=== PATIENT | female | born 1955 | race Caucasian/White ===

== ENCOUNTER 2017-09-22 08:34 | Emergency (ER) | payer MEDICAID ==
[2017-09-22 09:15] VITALS: BP 133/95
--- NOTE | 2017-09-22 09:56 | EDM.PDOC ---
ED HPI GENERAL MEDICAL PROBLEM - General Chief Complaint: Lower Extremity Injury/Pain Stated Complaint: RIGHT KNEE PAIN/LEFT HAND INJURY Time Seen by Provider: 09/22/17 09:14 Source of Information: Reports: Patient History Limitations: Reports: No Limitations - History of Present Illness INITIAL COMMENTS - FREE TEXT/NARRATIVE: The patient is a 61-year-old female with a chief complaint of right knee and left hand pain. She fell on the ice yesterday. She landed on her right knee. She came in for evaluation here today because the pain is significant. She is able to ambulate but it hurts to do so. Pain is located in the front of her right knee. No hip pain. No foot or ankle pain. She hasn't taken anything this morning for pain. She also has bruising on her left hand but she states is not very painful. No additional complaint. Right Knee Pain Score (Numeric/FACES): 7 - Related Data Allergies Allergy/AdvReac Type Severity Reaction Status Date / Time haloperidol [From Haldol] Allergy Muscle Verified 09/22/17 09:15 Aches haloperidol lactate Allergy Muscle Verified 09/22/17 09:15 [From Haldol] Aches Home Meds: Home Meds Levothyroxine 125 mcg PO DAILY 05/09/15 [History] [place] Carbonate 300 mg PO BID 05/09/15 [History] Ibuprofen 400 mg PO Q6H PRN #15 tablet 05/16/16 [Rx] LORazepam [Ativan] 1 mg PO DAILY PRN 09/22/17 [History] Omeprazole Magnesium [Prilosec Otc] 20 mg PO DAILY 09/22/17 [History] Stelazine 5 mg PO ACBREAKFAST 09/22/17 [History] Stelazine 15 mg PO BEDTIME 09/22/17 [History] Past Medical History Gastrointestinal History: Reports: GERD Musculoskeletal History: Reports: Arthritis Psychiatric History: Reports: Anxiety, Bipolar, Other (See Below) Other Psychiatric History: Paranoid schizoaffective disorder Endocrine/Metabolic History: Reports: Hypothyroidism - Past Surgical History Female Surgical History: Reports: Tubal Ligation Social & Family History - Family History Family Medical History: Noncontributory - Tobacco Use Smoking Status *Q: Current Every Day Smoker Years of Tobacco use: 31 Packs/Tins Daily: 0.7 - Recreational Drug Use Recreational Drug Use: No Review of Systems - Review of Systems Review Of Systems: See Below Constitutional: Reports: No Symptoms Respiratory: Reports: No Symptoms Cardiovascular: Reports: No Symptoms Musculoskeletal: Reports: Arm Pain, Leg Pain Skin: Reports: Bruising ED EXAM, GENERAL - Physical Exam Exam: See Below Exam Limited By: No Limitations General Appearance: Alert, WD/WN, No Apparent Distress Eye Exam: Bilateral Eye: Normal Inspection Ears: Normal External Exam Nose: Normal Inspection Throat/Mouth: Normal Inspection, Normal Voice, No Airway Compromise Head: Atraumatic, Normocephalic Neck: Normal Inspection Respiratory/Chest: No Respiratory Distress Cardiovascular: Normal Peripheral Pulses Extremities: Other (Lower extremity: No hip or femur tenderness or deformity. Mild diffuse erythema and tenderness of the anterior right knee. No knee effusion. Mild tenderness along the medial joint line. No tibia or fibula tenderness or deformity. No foot or ankle tenderness or deformity. Distal motor/ sensation/perfusion intact. Left hand: No wrist tenderness. Moderate ecchymosis at the base of the pinky and ring fingers. No bony deformity. Mild tenderness throughout. Minimal swelling. Distal motor/perfusion intact.) Psychiatric: Normal Affect, Normal Mood Skin Exam: Warm, Normal Color Course - Vital Signs Last Recorded V/S: Last Vital Signs Temp 36.8 C 09/22/17 09:10 Pulse 67 09/22/17 09:10 Resp 18 09/22/17 09:10 BP 133/95 H 09/22/17 09:10 Pulse Ox 99 09/22/17 09:10 - Orders/Labs/Meds Orders: Active Orders 24 hr Category Date Time Status Hand Comp Min 3V Lt [CR] Stat Exams 09/22/17 09:55 Taken Knee Min 4V Rt [CR] Stat Exams 09/22/17 09:55 Taken - Re-Assessments/Exams Free Text/Narrative Re-Assessment/Exam: 09/22/17 13:00 X-ray of the right knee is negative for fracture, normal study. X-ray of the left hand is also negative for fracture, normal study. Reassured patient and discussed need for follow-up if not improving next week. Departure - Departure Time of Disposition: 10:30 Disposition: Home, Self-Care 01 Clinical Impression: Knee contusion Qualifiers: Encounter type: initial encounter Laterality: right Qualified Code(s): S80.01XA - Contusion of right knee, initial encounter Hand contusion Qualifiers: Encounter type: initial encounter Laterality: left Qualified Code(s): S60.222A - Contusion of left hand, initial encounter - Discharge Information Instructions: Contusion, [id number] Referrals: Nora Mark MD [Primary Care Provider] - Forms: ED Department Discharge Additional Instructions: 1. Ice knee today and tomorrow 2. Take ibuprofen and/or acetaminophen as needed for pain 3. Keep knee elevated as much as possible over the next couple of days to help with swelling 4. Follow up with your primary doctor next week if not improving - My Orders Last 24 Hours: My Active Orders 09/22/17 09:55 Hand Comp Min 3V Lt [CR] Stat Knee Min 4V Rt [CR] Stat - Assessment/Plan Last 24 Hours: My Active Orders 09/22/17 09:55 Hand Comp Min 3V Lt [CR] Stat Knee Min 4V Rt [CR] Stat
--- NOTE | 2017-09-22 15:43 | CR ---
Right knee: Four views of the right knee were obtained. Comparison: No prior knee exam. Medial and lateral joint spaces are maintained. Small joint effusion is seen. No acute fracture or other bony abnormality is appreciated. Impression: 1. Small joint effusion. 2. No additional abnormality is identified on right knee exam. Diagnostic code #3
--- NOTE | 2017-09-22 15:43 | CR ---
Left hand: Four views of the left hand were obtained. Comparison: No prior hand exam. Mild joint space narrowing is noted within the DIP and PIP joints. No fracture, dislocation or other bony abnormality is seen. Impression: 1. Slight joint space narrowing. Left hand exam is otherwise unremarkable. Diagnostic code #2
== END 2017-09-22 10:45 | disposition home or self-care (01) ==
LOC: JD.ED 08:34
DX: S80.01XA Contusion of right knee, initial encounter (principal); S60.222A Contusion of left hand, initial encounter; F17.210 Nicotine dependence, cigarettes, uncomplicated; Z88.5 Allergy status to narcotic agent; Z79.899 Other long term (current) drug therapy; W00.1XXA Fall from stairs and steps due to ice and snow, initial encounter
CPT/HCPCS: 73130-26-LT; 73130-LT; 73564-26-RT; 73564-RT; 99282; 99283

== ENCOUNTER 2018-06-20 09:52 | Emergency (ER) | payer MEDICAID ==
[2018-06-20 10:12] VITALS: BP 137/95
[2018-06-20] MEDS ORDERED: LORazepam 2 MG/ML SDV IM ONE (11:03)
[2018-06-20] MEDS ORDERED: diphenhydrAMINE 50 MG/ML SDV IM ONE (11:05)
[2018-06-20] MEDS ORDERED: Haloperidol Lactate 5 MG/ML SDV IM ONE (11:12)
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
[2018-06-20] MEDS ORDERED: Cephalexin 500 MG Cap PO ONE (12:43)
[2018-06-20 12:56] LABS: ACETAMINOPHEN 0 ug/mL (10-30)
== END 2018-06-20 14:07 ==
LOC: JD.ED 09:52
DX: F29 Unspecified psychosis not due to a substance or known physiological condition (principal); Z88.8 Allergy status to other drugs, medicaments and biological substances; Z79.899 Other long term (current) drug therapy; F17.210 Nicotine dependence, cigarettes, uncomplicated
CPT/HCPCS: 36415; 80053; 80306; 81001; 84439; 84443; 85025; 87086; 87088; 87186; 96372; 99285; A9270; G0480; J1200; J1630; J2060; 99284

== ENCOUNTER 2019-12-26 14:16 | Emergency (ER) | payer MEDICAID ==
[2019-12-26 14:23] VITALS: BP 127/92; PULSE 111
--- NOTE | 2019-12-26 14:51 | EDM.PDOCBH ---
ED HPI GENERAL MEDICAL PROBLEM - General Chief Complaint: Behavioral/Psych Stated Complaint: MEDICAL CLEARANCE Time Seen by Provider: 12/26/19 14:23 Source of Information: Reports: Patient History Limitations: Reports: No Limitations ( ) - History of Present Illness INITIAL COMMENTS - FREE TEXT/NARRATIVE: Patient is a 64-year-old female brought in by the Electrical Test Engineer department for medical clearance. She was in court today and a court order was issued for her to be admitted to the [facility] due to her noncompliance with outpatient treatment. I did speak with the remote ruby on rails developer at [facility] who advised that she is already been accepted by the [facility], therefore a doc to doc report is not required. They did request that if anything concerning shows on her work-up to fax a copy to them. She advised me that she has a history of schizoaffective disorder, bipolar, anxiety, EtOH abuse in remission. Patient denies any current drug or alcohol use. She also denies any suicidal ideation. She was cooperative with the history denies any complaints. - Related Data Allergies Allergy/AdvReac Type Severity Reaction Status Date / Time haloperidol [From Haldol] Allergy Hives Verified 12/26/19 14:23 Home Meds: Home Meds Levothyroxine 125 mcg PO DAILY 05/09/15 [History] [place] Carbonate 300 mg PO BID 05/09/15 [History] Ibuprofen 400 mg PO Q6H PRN #15 tablet 05/16/16 [Rx] LORazepam [Ativan] 1 mg PO DAILY PRN 09/22/17 [History] Omeprazole Magnesium [Prilosec Otc] 20 mg PO DAILY 09/22/17 [History] Stelazine 5 mg PO ACBREAKFAST 09/22/17 [History] Stelazine 15 mg PO BEDTIME 09/22/17 [History] Past Medical History Gastrointestinal History: Reports: GERD 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: Musculoskeletal History: Reports: Arthritis Psychiatric History: Reports: Anxiety, Bipolar, Other (See Below) Other Psychiatric History: Paranoid schizoaffective disorder Endocrine/Metabolic History: Reports: Hypothyroidism - Past Surgical History Female Surgical History: Reports: Tubal Ligation Social & Family History - Family History Family Medical History: Noncontributory - Tobacco Use Smoking Status *Q: Current Every Day Smoker Years of Tobacco use: 20 Packs/Tins Daily: 0.5 - Caffeine Use Caffeine Use: Reports: None - Recreational Drug Use Recreational Drug Use: No ED ROS GENERAL - Review of Systems Review Of Systems: Comprehensive ROS is negative, except as noted in HPI. ED EXAM, BEHAVIORAL HEALTH - Physical Exam Exam: See Below Exam Limited By: No Limitations General Appearance: Alert, WD/WN, No Apparent Distress Respiratory/Chest: No Respiratory Distress, Lungs Clear, Normal Breath Sounds, No Accessory Muscle Use, Chest Non-Tender Cardiovascular: Normal Peripheral Pulses, Regular Rate, Rhythm, No Edema, No Gallop, No JVD, No Murmur, No Rub Neurological: Alert, Normal Mood/Affect, CN II-XII Intact, Normal Cognition, Normal Gait, Normal Reflexes, No Motor/Sensory Deficits, Oriented x 3 Psychiatric: Alert, Normal Affect, Normal Cognition, Normal Mood, Oriented Skin Exam: Warm, Dry, Intact, Normal color, No rash EKG INTERPRETATION EKG Date: 12/26/19 Time: 16:40 Rhythm: NSR Rate (Beats/Min): 99 [place]: Normal P-Wave: Present QRS: Normal ST-T: Normal QT: Normal Comparison: NA - No Prior EKG COURSE, BEHAVIORAL HEALTH COMP - Course Vital Signs: Last Vital Signs Temp 97.6 F 12/26/19 14:21 Pulse 111 H 12/26/19 14:21 Resp 18 12/26/19 14:21 BP 127/92 H 12/26/19 14:21 Pulse Ox 93 L 12/26/19 14:21 Orders, Labs, Meds: Active Orders 24 hr Category Date Time Status EKG Documentation Completion [RC] STAT Care 12/26/19 14:30 Active ACETAMINOPHEN [CHEM] Stat Lab 12/26/19 15:07 Received CBC WITH MANUAL DIFF [HEME] Stat Lab 12/26/19 15:07 Results COMPREHENSIVE METABOLIC PN,CMP [CHEM] Stat Lab 12/26/19 15:07 Received ETHANOL BLOOD MEDICAL [CHEM] Stat Lab 12/26/19 15:07 Received SALICYLATE [CHEM] Stat Lab 12/26/19 15:07 Received TSH [CHEM] Stat Lab 12/26/19 15:07 Received Laboratory Tests 12/26/19 12/26/19 12/26/19 Range/Units 14:34 14:34 15:07 WBC 8.24 (3.98-10.04) K/mm3 RBC 4.97 (3.98-5.22) M/mm3 Hgb 14.3 (11.2-15.7) gm/dl Hct 45.3 H (34.1-44.9) % MCV 91.1 (79.4-94.8) fl MCH 28.8 (25.6-32.2) pg MCHC 31.6 L (32.2-35.5) g/dl RDW Std Deviation 47.1 H (36.4-46.3) fL Plt Count 321 (182-369) K/mm3 MPV 9.3 L (9.4-12.3) fl Urine HCG, Qual Negative (NEGATIVE) Urine Opiates Screen Negative (DSZZPW=727) Ur Buprenorphine Scrn Negative (CUTOFF=10) Ur Oxycodone Screen Negative (JAB9MF=688) Urine Methadone Screen Negative (ITKDLS=624) Ur Propoxyphene Screen Negative (DLPLDQ=661) Ur Barbiturates Screen Negative (UNQNOD=481) Ur Tricyclics Screen Negative (SPMQDG=035) Ur Phencyclidine Scrn Negative (CUTOFF=25) Ur Amphetamine Screen Negative (MILFBH=709) U Methamphetamines Scrn Negative (RUDHID=122) U Benzodiazepines Scrn Negative (ORGRNG=213) U Cocaine Metab Screen Negative (PAHSBO=565) U Marijuana (THC) Screen Negative (CUTOFF=50) Departure - Departure Time of Disposition: 15:39 Disposition: Home, Self-Care 01 Condition: Good Clinical Impression: Schizo-affective schizophrenia, chronic condition - Discharge Information *PRESCRIPTION DRUG MONITORING PROGRAM REVIEWED*: No *COPY OF PRESCRIPTION DRUG MONITORING REPORT IN PATIENT BETHANY: No Forms: ED Department Discharge Additional Instructions: Maegan was seen in the emergency department today for medical clearance. A complete psychiatric work-up was completed and she was found to be medically stable at this time. [facility] verbalized that she is already accepted into the [facility] in [place]. She may be transported there when resources are available. Sepsis Event Note - Evaluation Sepsis Screening Result: No Definite Risk - Focused Exam Vital Signs: Vital Signs Temp Pulse Resp BP Pulse Ox 12/26/19 14:21 97.6 F 111 H 18 127/92 H 93 L Date Exam was Performed: 12/26/19 Time Exam was Performed: 15:39 - My Orders Last 24 Hours: My Active Orders 12/26/19 14:30 EKG Documentation Completion [RC] STAT 12/26/19 15:07 ACETAMINOPHEN [CHEM] Stat CBC WITH MANUAL DIFF [HEME] Stat COMPREHENSIVE METABOLIC PN,CMP [CHEM] Stat ETHANOL BLOOD MEDICAL [CHEM] Stat SALICYLATE [CHEM] Stat TSH [CHEM] Stat - Assessment/Plan Last 24 Hours: My Active Orders 12/26/19 14:30 EKG Documentation Completion [RC] STAT 12/26/19 15:07 ACETAMINOPHEN [CHEM] Stat CBC WITH MANUAL DIFF [HEME] Stat COMPREHENSIVE METABOLIC PN,CMP [CHEM] Stat ETHANOL BLOOD MEDICAL [CHEM] Stat SALICYLATE [CHEM] Stat TSH [CHEM] Stat
[2019-12-26 15:48] LABS: ACETAMINOPHEN 0 ug/mL (10-30)
== END 2019-12-26 16:00 | disposition home or self-care (01) ==
LOC: JD.ED 14:16
DX: F20.9 Schizophrenia, unspecified (principal); K21.9 Gastro-esophageal reflux disease without esophagitis; M19.90 Unspecified osteoarthritis, unspecified site; F41.9 Anxiety disorder, unspecified; E03.9 Hypothyroidism, unspecified; F17.210 Nicotine dependence, cigarettes, uncomplicated; Z88.8 Allergy status to other drugs, medicaments and biological substances; Z79.899 Other long term (current) drug therapy
CPT/HCPCS: 36415; 80053; 80306; 80307; 81025; 84443; 85007; 85027; 93005; 93010; 99283; 99283-25

== ENCOUNTER 2020-03-13 12:06 | Emergency (ER) | payer MEDICAID ==
--- NOTE | 2020-03-13 13:01 | EDM.PDOCBH ---
ED HPI GENERAL MEDICAL PROBLEM - General Chief Complaint: Behavioral/Psych Stated Complaint: [facility] Time Seen by Provider: 03/13/20 12:14 Source of Information: Reports: Patient, Family (Daughter Marge), Jail Records, Old Records, RN Notes Reviewed History Limitations: Reports: No Limitations - History of Present Illness INITIAL COMMENTS - FREE TEXT/NARRATIVE: Patient is a 64-year-old female who presents to the ED from [facility] for a mental health evaluation. The patient's daughter is her legal guardian and has all decision-making capabilities. Patient is disabled. She most recently got admitted to the [facility] in December 2019, and was released to the [facility] in [facility] which is a basic care assisted living. The patient had been there only 1 week. And was on "quarantine", due to COVID restrictions. The patient states that she is not allowed to smoke in this facility, and that she normally is a 1 pack/day smoker since around 1991. Patient states that she had an argument with the staff at [facility], and told him that she was going to go to the gas station to get a cigarette, and the cap maker were called, and the ambulance was subsequently called for transport to the ER. Patient psychiatrist is Dr. Kian thomas the [facility]. The legal guardian daughter Marge was called on the patient's behalf, as the patient is very appropriate and cooperative answering all questions and is denying any sort of issues that she had, she states simply that she just wanted a cigarette and was going to get 1 and that the [facility] would not accept her back because she left. The daughter states that she called [facility] yesterday, and the staff were raising some concerns regarding paranoid behaviors. They were not sure if it was due to a visitor that came yesterday, that she could not have due to COVID restrictions. And the daughter was told that the patient was making statements that [facility] was taking her money, and sounded somewhat paranoid. The daughter notes that when the mother makes the sort of statements, she is more in a manic state regarding her mental health. The daughter does note that she had multiple medicines changed at the [facility], and there were some concerns regarding Medicare payment, and she was not able to get some dosing due to this. The daughter further notes that there is an alternate treatment order to step back to the [facility] if the patient is not taking her medications appropriately, or there seem to be other psychiatric abnormalities. The daughter did get told that the patient refused some of her medications last night, so she thinks this is concerning, and would essentially like her mother readmitted back to the [facility]. The daughter notes that her mother's bartender's name is Jose Jones, and that she did not believe that [facility] was involved with the discharge at all. - Related Data Allergies Allergy/AdvReac Type Severity Reaction Status Date / Time haloperidol [From Haldol] Allergy Hives Verified 03/13/20 12:20 pollen extracts Allergy Itching Verified 03/13/20 12:20 Home Meds: Home Meds Levothyroxine 175 mcg PO DAILY 05/09/15 [History] [place] Carbonate 600 mg PO BEDTIME 05/09/15 [History] Omeprazole Magnesium [Prilosec Otc] 20 mg PO DAILY 09/22/17 [History] Benztropine [Cogentin] 1 mg PO BID 03/13/20 [History] Cholecalciferol (Vitamin D3) [Vitamin D3] 2,000 unit PO DAILY 03/13/20 [History] ClonazePAM [KlonoPIN] 0.5 mg PO BID 03/13/20 [History] Ibuprofen 400 mg PO ASDIRECTED PRN 03/13/20 [History] Ketotifen [Ketotifen 0.025% Ophth Soln] 1 drop EYEBOTH BID 03/13/20 [History] [place] Carbonate [Eskalith CR] 450 mg PO 0800 03/13/20 [History] Lurasidone HCl [Latuda] 120 mg PO PCDINNER 03/13/20 [History] Nicotine [Nicotine Patch] 14 mg TRDERM DAILY 03/13/20 [History] risperiDONE [Risperdal] 2 mg PO BEDTIME 03/13/20 [History] traZODone HCl [Trazodone HCl] 100 mg PO ASDIRECTED PRN 03/13/20 [History] Past Medical History Respiratory History: Reports: Other (See Below) Other Respiratory History: seasonal allergies Gastrointestinal History: Reports: GERD 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: Musculoskeletal History: Reports: Arthritis Psychiatric History: Reports: Anxiety, Bipolar, Psych Hospitalization(s), Other (See Below) Other Psychiatric History: Paranoid schizoaffective disorder Endocrine/Metabolic History: Reports: Hypothyroidism - Infectious Disease History Infectious Disease History: Reports: Chicken Pox, Measles, Mumps - Past Surgical History Female Surgical History: Reports: Tubal Ligation Social & Family History - Family History Family Medical History: Noncontributory - Tobacco Use Smoking Status *Q: Current Every Day Smoker Years of Tobacco use: 30 Packs/Tins Daily: 1 - Caffeine Use Caffeine Use: Reports: Coffee, Soda, Tea - Recreational Drug Use Recreational Drug Use: No ED ROS GENERAL - Review of Systems Review Of Systems: See Below Respiratory: Denies: Shortness of Breath, Cough Cardiovascular: Denies: Chest Pain GI/Abdominal: Denies: Abdominal Pain, Constipation, Diarrhea, Nausea, Vomiting Neurological: Denies: Confusion Psychiatric: Denies: Agitation, Anxiety, Confusion, Cravings, Depression, Hallucinations, Homicidal Ideation, Mood Lability, Suicidal Ideation ED EXAM, BEHAVIORAL HEALTH - Physical Exam Exam: See Below Exam Limited By: No Limitations General Appearance: Alert, WD/WN, No Apparent Distress Eye Exam: Bilateral Eye: EOMI, Normal Inspection, PERRL Ears: Normal External Exam Nose: Normal Inspection Throat/Mouth: Normal Inspection, Normal Lips, Normal Teeth, Normal Gums, Normal Oropharynx, Normal Voice, No Airway Compromise Head: Atraumatic, Normocephalic Neck: Normal Inspection Respiratory/Chest: No Respiratory Distress, Lungs Clear, Normal Breath Sounds, No Accessory Muscle Use, Chest Non-Tender Cardiovascular: Normal Peripheral Pulses, Regular Rate, Rhythm, No Murmur GI/Abdominal: Normal Bowel Sounds, Soft, Non-Tender, No Distention, No Mass Extremities: Normal Inspection, Normal Capillary Refill Neurological: Alert, Normal Mood/Affect, Normal Cognition, Normal Reflexes, No Motor/Sensory Deficits Psychiatric: Alert, Normal Affect, Normal Cognition, Normal Mood, Oriented. No : Homicidal Thoughts, Amish Delusions, Suicidal Plan, Suicidal Thoughts, Tangential Thoughts, Auditory Hallucinations, Visual Hallucinations, Grandiose Thoughts, Paranoid Thoughts, Threatening Behavior Skin Exam: Warm, Dry, Intact, Normal color, No rash EKG INTERPRETATION EKG Date: 03/13/20 Time: 12:54 Rhythm: NSR Rate (Beats/Min): [address]: Normal P-Wave: Present QRS: Normal ST-T: Normal QT: Normal Comparison: No Change EKG Interpretation Comments: No obvious ischemia or acute ST changes noted, reviewed by myself and Dr. Medel. QTC within normal limits. COURSE, BEHAVIORAL HEALTH COMP - Course Vital Signs: Last Vital Signs Temp 97.7 F 03/13/20 12:15 Pulse 87 03/13/20 12:15 Resp 18 03/13/20 12:15 BP 104/73 03/13/20 12:15 Pulse Ox 95 03/13/20 12:15 Orders, Labs, Meds: Active Orders 24 hr Category Date Time Status EKG Documentation Completion [RC] STAT Care 03/13/20 12:39 Ordered Laboratory Tests 03/13/20 03/13/20 03/13/20 Range/Units 12:50 12:50 12:50 WBC 9.40 (3.98-10.04) K/mm3 RBC 5.00 (3.98-5.22) M/mm3 Hgb 14.1 (11.2-15.7) gm/dl Hct 44.0 (34.1-44.9) % MCV 88.0 D (79.4-94.8) fl MCH 28.2 (25.6-32.2) pg MCHC 32.0 L (32.2-35.5) g/dl RDW Std Deviation 43.1 (36.4-46.3) fL Plt Count 331 (182-369) K/mm3 MPV 9.7 (9.4-12.3) fl Neutrophils % (Manual) 67 H (40-60) % Band Neutrophils % 0 (0-10) % Lymphocytes % (Manual) 25 (20-40) % Atypical Lymphs % 0 % Monocytes % (Manual) 7 (2-10) % Eosinophils % (Manual) 1 (0.7-5.8) % Basophils % (Manual) 0 L (0.1-1.2) Platelet Estimate Adequate RBC Morph Comment Normal Sodium 139 (136-145) mEq/L Potassium 3.7 (3.5-5.1) mEq/L Chloride 105 (98-107) mEq/L Carbon Dioxide 26 (21-32) mEq/L Anion Gap 11.7 (5-15) BUN 8 (7-18) mg/dL Creatinine 0.8 (0.55-1.02) mg/dL Est Cr Clr Drug Dosing 68.26 mL/min Estimated GFR (MDRD) > 60 (>60) mL/min BUN/Creatinine Ratio 10.0 L (14-18) Glucose 93 (80-115) mg/dL Calcium 9.5 (8.5-10.1) mg/dL Total Bilirubin 0.7 (0.2-1.0) mg/dL AST 12 L (15-37) U/L ALT 18 (14-59) U/L Alkaline Phosphatase 103 (46-116) U/L Total Protein 6.9 (6.4-8.2) g/dl Albumin 3.3 L (3.4-5.0) g/dl Globulin 3.6 gm/dL Albumin/Globulin Ratio 0.9 L (1-2) TSH 3rd Generation 0.346 L (0.358-3.74) uIU/mL Salicylates (2.8-20) mg/dL Urine Opiates Screen Negative (OUMNOC=945) Ur Buprenorphine Scrn Negative (CUTOFF=10) Ur Oxycodone Screen Negative (EEB5VP=696) Urine Methadone Screen Negative (WJAFWM=098) Ur Propoxyphene Screen Negative (RNGQHK=359) Acetaminophen 0 L (10-30) ug/mL Ur Barbiturates Screen Negative (QSOVSP=954) Ur Tricyclics Screen Negative (KNWLJK=546) Ur Phencyclidine Scrn Negative (CUTOFF=25) Ur Amphetamine Screen Negative (YFBUFD=893) U Methamphetamines Scrn Negative (GPOSVK=361) U Benzodiazepines Scrn Negative (GAOPQO=634) U Cocaine Metab Screen Negative (MCFYHH=128) U Marijuana (THC) Screen Negative (CUTOFF=50) Ethyl Alcohol 0.00 (0.00) gm% 03/13/20 Range/Units 12:50 WBC (3.98-10.04) K/mm3 RBC (3.98-5.22) M/mm3 Hgb (11.2-15.7) gm/dl Hct (34.1-44.9) % MCV (79.4-94.8) fl MCH (25.6-32.2) pg MCHC (32.2-35.5) g/dl RDW Std Deviation (36.4-46.3) fL Plt Count (182-369) K/mm3 MPV (9.4-12.3) fl Neutrophils % (Manual) (40-60) % Band Neutrophils % (0-10) % Lymphocytes % (Manual) (20-40) % Atypical Lymphs % % Monocytes % (Manual) (2-10) % Eosinophils % (Manual) (0.7-5.8) % Basophils % (Manual) (0.1-1.2) Platelet Estimate RBC Morph Comment Sodium (136-145) mEq/L Potassium (3.5-5.1) mEq/L Chloride (98-107) mEq/L Carbon Dioxide (21-32) mEq/L Anion Gap (5-15) BUN (7-18) mg/dL Creatinine (0.55-1.02) mg/dL Est Cr Clr Drug Dosing mL/min Estimated GFR (MDRD) (>60) mL/min BUN/Creatinine Ratio (14-18) Glucose (80-115) mg/dL Calcium (8.5-10.1) mg/dL Total Bilirubin (0.2-1.0) mg/dL AST (15-37) U/L ALT (14-59) U/L Alkaline Phosphatase (46-116) U/L Total Protein (6.4-8.2) g/dl Albumin (3.4-5.0) g/dl Globulin gm/dL Albumin/Globulin Ratio (1-2) TSH 3rd Generation (0.358-3.74) uIU/mL Salicylates 0.3 L (2.8-20) mg/dL Urine Opiates Screen (JDMOPN=022) Ur Buprenorphine Scrn (CUTOFF=10) Ur Oxycodone Screen (IQZ8OD=700) Urine Methadone Screen (ROOVCM=411) Ur Propoxyphene Screen (LHNTRL=183) Acetaminophen (10-30) ug/mL Ur Barbiturates Screen (NPDYAX=382) Ur Tricyclics Screen (NXFUHK=419) Ur Phencyclidine Scrn (CUTOFF=25) Ur Amphetamine Screen (EZITJN=340) U Methamphetamines Scrn (ZYPFZS=896) U Benzodiazepines Scrn (SIRRNI=174) U Cocaine Metab Screen (FNBVRS=828) U Marijuana (THC) Screen (CUTOFF=50) Ethyl Alcohol (0.00) gm% Medications Discontinued Medications Generic Name Dose Route Start Last Admin Trade Name Freq PRN Reason Stop Dose Admin Lorazepam 2 mg 03/13/20 14:56 Ativan IM 03/13/20 14:57 ONETIME ONE Olanzapine 10 mg 03/13/20 14:49 03/13/20 14:57 Zyprexa IM 03/13/20 14:50 10 mg ONETIME ONE Administration Olanzapine Confirm 03/13/20 14:51 03/13/20 14:57 Zyprexa Administered 03/13/20 14:52 Not Given Dose 10 mg .ROUTE .STK-MED ONE Medical Clearance: 03/13/20 16:01 Patient is considered medically clear to go to the [facility] for further treatment. Of note the patient's TSH was mildly low, she would benefit from a mild adjustment in her thyroid medications, this can be facilitated through the [facility] as well. It would not provide the patient much benefit to make this change in the ER at this time. Discharge vs Psych Eval/Treatment:: 03/13/20 14:21 Patient presents to the ED for a mental health evaluation of sorts. Patient's laboratory evaluation demonstrates a mildly low TSH level, which would suggest that she is overmedicated with the levothyroxine, and that could be cut back. I did involve Stacey Ann, our adoption social worker to help try to facilitate placement of this patient, as the daughter would essentially like her to get back to the [facility] to make sure that her medications are being dealt with appropriate. I did not know to what extent the alternate treatment order could be utilized regarding this, but he is checking with [facility], and will be in contact with me. But I believe the ultimate plan would be to send the patient back to the [facility] for further management. 03/13/20 14:47 Stacey G has been in contact with [facility] [employer] [employer] regarding the alternate treatment order. The patient is getting somewhat restless and is demanding to leave, unfortunately we cannot let her do so as a safety concern, Have ordered Zyprexa 10mg and Ativan 2mg IM to help calm her down and I will talk with Dr. Izquierdo at the [facility] to get her transferred back to the [facility]. 03/13/20 14:59 I was in contact with the psychiatrist assistant controller Dr. Margie Garcia, and they ultimately accept the patient in transfer, she did request a COVID test be performed, but we do not have to wait for results, and would like the patient sent as soon as possible. 03/13/20 15:10 RN in charge of patient's care did tell me that she had a current COVID screening test and this was negative. We will try to get these results from [facility], and sent in the packet with the other transfer materials. Departure - Departure Time of Disposition: 15:07 Disposition: DC/Tfer to Psych Hosp/Unit 65 Condition: Fair Clinical Impression: Schizophrenia Qualifiers: Schizophrenia type: paranoid schizophrenia Qualified Code(s): F20.0 - Paranoid schizophrenia - Discharge Information *PRESCRIPTION DRUG MONITORING PROGRAM REVIEWED*: No *COPY OF PRESCRIPTION DRUG MONITORING REPORT IN PATIENT BETHANY: No Referrals: Amie Rajan MD [Primary Care Provider] - Forms: ED Department Discharge Sepsis Event Note - Evaluation Sepsis Screening Result: No Definite Risk - Focused Exam Vital Signs: Vital Signs Temp Pulse Resp BP Pulse Ox 03/13/20 12:15 97.7 F 87 18 104/73 95 Date Exam was Performed: 03/13/20 Time Exam was Performed: 16:00 - My Orders Last 24 Hours: My Active Orders 03/13/20 12:39 EKG Documentation Completion [RC] STAT - Assessment/Plan Last 24 Hours: My Active Orders 03/13/20 12:39 EKG Documentation Completion [RC] STAT
[2020-03-13 13:31] LABS: ACETAMINOPHEN 0 ug/mL (10-30)
[2020-03-13] MEDS ORDERED: OLANZapine 10 MG Vial IM ONE (14:49)
[2020-03-13] MEDS ORDERED: OLANZapine 10 MG Vial ONE (14:51)
[2020-03-13] MEDS ORDERED: LORazepam 2 MG/ML SDV IM ONE (14:56)
[2020-03-13 18:02] VITALS: BP 120/102; PULSE 99
== END 2020-03-13 17:20 ==
LOC: JD.ED 12:06
DX: F20.0 Paranoid schizophrenia (principal); K21.9 Gastro-esophageal reflux disease without esophagitis; F41.9 Anxiety disorder, unspecified; F31.9 Bipolar disorder, unspecified; E03.9 Hypothyroidism, unspecified; F17.210 Nicotine dependence, cigarettes, uncomplicated; Z91.09 Other allergy status, other than to drugs and biological substances; Z88.8 Allergy status to other drugs, medicaments and biological substances; Z79.899 Other long term (current) drug therapy
CPT/HCPCS: 36415; 80053; 80306; 80307; 84443; 85007; 85027; 93005; 96372; 99285; J2060; S0166; 93010; 99284; J3490

== ENCOUNTER 2020-08-28 08:29 | Emergency (ER) | payer MEDICAID ==
--- NOTE | 2020-08-28 09:36 | EDM.PDOC ---
ED HPI GENERAL MEDICAL PROBLEM - General Chief Complaint: General Stated Complaint: COVID + Time Seen by Provider: 08/28/20 08:47 Source of Information: Reports: Patient, Old Records History Limitations: Reports: No Limitations - History of Present Illness INITIAL COMMENTS - FREE TEXT/NARRATIVE: The patient presents by private vehicle from [facility]/psych unit for medical evaluation. The patient has bipolar disorder and she is a resident at the unit. She was diagnosed with COVID 19 virus yesterday. Arrangements were made with the [facility] for admission. There has been no worsening of her bipolar disorder but because of the COVID 19 she needs to go to the [facility]'s Man[facility]/Psych COVID 19 unit. She denies any symptoms such as fever, chills, headache, cough, chest pain, shortness of breath, abdominal pain, nausea, vomiting or diarrhea. She still has her sense of smell and taste. Onset: Gradual Duration: Day(s): Severity: Moderate Improves with: Reports: None Worsens with: Reports: None Associated Symptoms: Reports: No Other Symptoms - Related Data Allergies Allergy/AdvReac Type Severity Reaction Status Date / Time haloperidol [From Haldol] Allergy Hives Verified 08/28/20 08:54 pollen extracts Allergy Itching Verified 08/28/20 08:54 Home Meds: Home Meds Levothyroxine 175 mcg PO DAILY 05/09/15 [History] [place] Carbonate 600 mg PO BID 05/09/15 [History] Omeprazole Magnesium [Prilosec Otc] 20 mg PO DAILY 09/22/17 [History] Benztropine [Cogentin] 1 mg PO DAILY PRN 03/13/20 [History] Cholecalciferol (Vitamin D3) [Vitamin D3] 2,000 unit PO DAILY 03/13/20 [History] Ibuprofen 400 mg PO ASDIRECTED PRN 03/13/20 [History] Nicotine [Nicotine Patch] 14 mg TRDERM DAILY 03/13/20 [History] LORazepam [Ativan] 0.5 mg PO TID 08/28/20 [History] Paliperidone [Invega] 08/28/20 [History] Past Medical History Respiratory History: Reports: Other (See Below) Other Respiratory History: seasonal allergies Gastrointestinal History: Reports: GERD 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: Musculoskeletal History: Reports: Arthritis Psychiatric History: Reports: Anxiety, Bipolar, Psych Hospitalization(s), Other (See Below) Other Psychiatric History: Paranoid schizoaffective disorder Endocrine/Metabolic History: Reports: Hypothyroidism - Infectious Disease History Infectious Disease History: Reports: Chicken Pox, Measles, Mumps, Novel Coronavirus - Past Surgical History Female Surgical History: Reports: Tubal Ligation Social & Family History - Family History Family Medical History: No Pertinent Family History - Tobacco Use Tobacco Use Status *Q: Former Tobacco User Used Tobacco, but Quit: Yes Month/Year Tobacco Last Used: December 2019 - Caffeine Use Caffeine Use: Reports: Coffee, Soda, Tea ED ROS GENERAL - Review of Systems Review Of Systems: See Below Constitutional: Reports: No Symptoms HEENT: Reports: No Symptoms Respiratory: Reports: No Symptoms Cardiovascular: Reports: No Symptoms Endocrine: Reports: No Symptoms GI/Abdominal: Reports: No Symptoms : Reports: No Symptoms Musculoskeletal: Reports: No Symptoms ED EXAM, GENERAL - Physical Exam Exam: See Below Exam Limited By: No Limitations General Appearance: Alert, No Apparent Distress Ears: Normal External Exam Nose: Normal Inspection Head: Atraumatic, Normocephalic Neck: Normal Inspection Respiratory/Chest: No Respiratory Distress, Lungs Clear, Normal Breath Sounds Cardiovascular: Regular Rate, Rhythm, No Edema, No Murmur GI/Abdominal: Soft, Non-Tender, No Organomegaly, No Mass Back Exam: Normal Inspection Extremities: Normal Inspection Course - Vital Signs Last Recorded V/S: Last Vital Signs Temp 97.7 F 08/28/20 08:49 Pulse 82 08/28/20 09:39 Resp 20 08/28/20 09:39 BP 122/85 08/28/20 09:39 Pulse Ox 94 L 08/28/20 09:39 - Orders/Labs/Meds Orders: Active Orders 24 hr Category Date Time Status Cardiac Monitoring [RC] . DIRECTED Care 08/28/20 09:16 Active CXR [Chest 1V Frontal] [CR] Stat Exams 08/28/20 09:18 Taken ACETAMINOPHEN [CHEM] Stat Lab 08/28/20 09:45 Received C-REACTIVE PROTEIN [CHEM] Stat Lab 08/28/20 09:45 Received CBC WITH AUTO DIFF [HEME] Stat Lab 08/28/20 09:45 Received COMPREHENSIVE METABOLIC PN,CMP [CHEM] Stat Lab 08/28/20 09:45 Received D-DIMER QUANTITATIVE [COAG] Stat Lab 08/28/20 09:45 Received ETHANOL BLOOD MEDICAL [CHEM] Stat Lab 08/28/20 09:45 Received LACTIC ACID [CHEM] Stat Lab 08/28/20 09:45 Received SALICYLATE [CHEM] Stat Lab 08/28/20 09:45 Received SEDIMENTATION RATE AUTO [HEME] Stat Lab 08/28/20 09:45 Received TSH [CHEM] Stat Lab 08/28/20 09:45 Received Labs: Laboratory Tests 08/28/20 Range/Units 09:33 Urine Opiates Screen Negative (SOCSJP=757) Ur Buprenorphine Scrn Negative (CUTOFF=10) Ur Oxycodone Screen Negative (KHD8XV=961) Urine Methadone Screen Negative (TBUIWA=133) Ur Propoxyphene Screen Negative (XXBHPC=285) Ur Barbiturates Screen Negative (LCRWMV=075) Ur Tricyclics Screen Negative (UCJPKI=000) Ur Phencyclidine Scrn Negative (CUTOFF=25) Ur Amphetamine Screen Negative (BIUEFV=859) U Methamphetamines Scrn Negative (UXRWIA=496) U Benzodiazepines Scrn Negative (RETVPG=268) U Cocaine Metab Screen Negative (NNEISH=350) U Marijuana (THC) Screen Negative (CUTOFF=50) - Re-Assessments/Exams Free Text/Narrative Re-Assessment/Exam: 08/28/20 09:36 I ordered CXR and labs. 08/28/20 09:55 Her CXR shows a poor inspiratory effort but nothing acute. Her labs are pending. Her oxygen saturations are good. She is doing good. She is medically cleared to go to the [facility] in [place]. Departure - Departure Time of Disposition: 10:00 Disposition: Home, Self-Care 01 Condition: Good Clinical Impression: COVID-19 Bipolar disorder Qualifiers: Active/Remission status: remission status unspecified Qualified Code(s): F31.9 - Bipolar disorder, unspecified - Discharge Information *PRESCRIPTION DRUG MONITORING PROGRAM REVIEWED*: Not Applicable *COPY OF PRESCRIPTION DRUG MONITORING REPORT IN PATIENT BETHANY: Not Applicable Referrals: PCP,None [Primary Care Provider] - Forms: ED Department Discharge Additional Instructions: A medical screening exam was done and you are medically cleared to go to the [facility] in [place]. Sepsis Event Note (ED) - Evaluation Sepsis Screening Result: No Definite Risk - Focused Exam Vital Signs: Vital Signs Temp Pulse Resp BP Pulse Ox 08/28/20 09:39 82 20 122/85 94 L 08/28/20 08:49 97.7 F 80 16 133/83 96 - My Orders Last 24 Hours: My Active Orders 08/28/20 09:16 Cardiac Monitoring [RC] . DIRECTED 08/28/20 09:18 CXR [Chest 1V Frontal] [CR] Stat 08/28/20 09:45 ACETAMINOPHEN [CHEM] Stat C-REACTIVE PROTEIN [CHEM] Stat CBC WITH AUTO DIFF [HEME] Stat COMPREHENSIVE METABOLIC PN,CMP [CHEM] Stat D-DIMER QUANTITATIVE [COAG] Stat ETHANOL BLOOD MEDICAL [CHEM] Stat LACTIC ACID [CHEM] Stat SALICYLATE [CHEM] Stat SEDIMENTATION RATE AUTO [HEME] Stat TSH [CHEM] Stat - Assessment/Plan Last 24 Hours: My Active Orders 08/28/20 09:16 Cardiac Monitoring [RC] . DIRECTED 08/28/20 09:18 CXR [Chest 1V Frontal] [CR] Stat 08/28/20 09:45 ACETAMINOPHEN [CHEM] Stat C-REACTIVE PROTEIN [CHEM] Stat CBC WITH AUTO DIFF [HEME] Stat COMPREHENSIVE METABOLIC PN,CMP [CHEM] Stat D-DIMER QUANTITATIVE [COAG] Stat ETHANOL BLOOD MEDICAL [CHEM] Stat LACTIC ACID [CHEM] Stat SALICYLATE [CHEM] Stat SEDIMENTATION RATE AUTO [HEME] Stat TSH [CHEM] Stat
[2020-08-28 10:42] LABS: ACETAMINOPHEN 0 ug/mL (10-30)
--- NOTE | 2020-08-28 10:59 | CR ---
PROCEDURE INFORMATION: Exam: XR Chest, 1 View Exam date and time: 08/28/2020 9:12 AM Age: 64 years old Clinical indication: Abnormal findings; Other: Covid-19 positive TECHNIQUE: Imaging protocol: XR of the chest Views: 1 view. COMPARISON: DX Ribs 2V w Chest Rt 05/16/2016 5:41 AM FINDINGS: Lungs: The lungs are normally expanded and clear. Pleural space: Normal. Heart/Mediastinum: Normal heart and cardiomediastinal silhouette. Vasculature: Normal pulmonary vessel caliber. Normal aorta. Bones/joints: The bones are intact. IMPRESSION: No acute disease or suspicious finding. Thank you for allowing us to participate in the care of your patient. Dictated and Authenticated by: German Lorenzana MD 08/28/2020 11:57 AM Central Time ([place] & [place]) [facility] SYSTEMGuillermo
[2020-08-28 12:55] VITALS: BP 112/86; PULSE 70
== END 2020-08-28 13:00 | disposition home or self-care (01) ==
LOC: JD.ED 08:29
DX: U07.1 COVID-19 (principal); F31.9 Bipolar disorder, unspecified; K21.9 Gastro-esophageal reflux disease without esophagitis; D41.9 Neoplasm of uncertain behavior of unspecified urinary organ; E03.9 Hypothyroidism, unspecified; Z87.891 Personal history of nicotine dependence; Z88.8 Allergy status to other drugs, medicaments and biological substances; Z91.048 Other nonmedicinal substance allergy status
CPT/HCPCS: 36415; 71045; 71045-26; 80053; 80306; 80307; 83605; 84443; 85025; 85379; 85652; 86140; 99283-25; 99284

== ENCOUNTER 2021-04-06 10:48 | Emergency (ER) | payer MEDICAID ==
[2021-04-06 10:59] VITALS: BP 124/81; PULSE 83
--- NOTE | 2021-04-06 11:37 | EDM.PDOC ---
ED HPI GENERAL MEDICAL PROBLEM - General Chief Complaint: Respiratory Problem Stated Complaint: [facility] Time Seen by Provider: 04/06/21 11:05 Source of Information: Reports: Patient, RN Notes Reviewed History Limitations: Reports: No Limitations - History of Present Illness INITIAL COMMENTS - FREE TEXT/NARRATIVE: Patient is a 65-year-old female presenting to the emergency department with complaints of intermittent swelling to her lower extremities, the right being worse than the left as well as some occasional shortness of breath with exertion. She reports that she recently moved into a new apartment and has been on her feet quite a bit to unpack. Reports that she had recently quit smoking after a [id number] history of smoking. Denies any history of COPD or emphysema. She has had no chest pain. States she does have some intermittent pain in her right lower leg. When she elevates her legs, the swelling does improve. Denies any history of congestive heart failure. Right Leg Pain Score (Numeric/FACES): 5 - Related Data Allergies Allergy/AdvReac Type Severity Reaction Status Date / Time haloperidol [From Haldol] Allergy Hives Verified 04/06/21 11:22 pollen extracts Allergy Itching Verified 04/06/21 11:22 Home Meds: Home Meds Levothyroxine 175 mcg PO DAILY 05/09/15 [History] [place] Carbonate 600 mg PO BID 05/09/15 [History] Omeprazole Magnesium [Prilosec Otc] 20 mg PO DAILY 09/22/17 [History] Benztropine [Cogentin] 1 mg PO DAILY PRN 03/13/20 [History] Cholecalciferol (Vitamin D3) [Vitamin D3] 2,000 unit PO DAILY 03/13/20 [History] Ibuprofen 400 mg PO ASDIRECTED PRN 03/13/20 [History] Nicotine [Nicotine Patch] 14 mg TRDERM DAILY 03/13/20 [History] LORazepam [Ativan] 0.5 mg PO TID 08/28/20 [History] Paliperidone [Invega] 08/28/20 [History] Loratadine 10 mg PO DAILY 04/06/21 [History] Past Medical History HEENT History: Reports: Allergic Rhinitis Respiratory History: Reports: Bronchitis, Recurrent, Pneumonia, Recurrent, Other (See Below) Other Respiratory History: seasonal allergies Gastrointestinal History: Reports: GERD Genitourinary History: Reports: UTI, Recurrent [employer] History: Reports: Musculoskeletal History: Reports: Arthritis, Fracture Psychiatric History: Reports: Anxiety, Bipolar, Depression, Psych Hospitalization(s), Other (See Below) Other Psychiatric History: Paranoid schizoaffective disorder Endocrine/Metabolic History: Reports: Hypothyroidism - Infectious Disease History Infectious Disease History: Reports: Chicken Pox, Measles, Mumps, Novel Coronavirus - Past Surgical History Female Surgical History: Reports: Tubal Ligation Social & Family History - Family History Family Medical History: No Pertinent Family History - Tobacco Use Tobacco Use Status *Q: Former Tobacco User Years of Tobacco use: 35 Used Tobacco, but Quit: Yes Month/Year Tobacco Last Used: December 2019 - Caffeine Use Caffeine Use: Reports: Coffee, Soda - Recreational Drug Use Recreational Drug Use: No ED ROS GENERAL - Review of Systems Review Of Systems: See Below Constitutional: Reports: No Symptoms. Denies: Fever, Chills, Weakness HEENT: Reports: No Symptoms Respiratory: Reports: Shortness of Breath (Intermittent). Denies: Wheezing, Pleuritic Chest Pain, Cough Cardiovascular: Reports: Edema (Bilateral lower extremities. Right more than left). Denies: Chest Pain, Lightheadedness, Palpitations, Syncope Endocrine: Reports: No Symptoms GI/Abdominal: Reports: No Symptoms : Reports: No Symptoms Musculoskeletal: Reports: No Symptoms Skin: Reports: No Symptoms Neurological: Reports: No Symptoms Psychiatric: Reports: No Symptoms Hematologic/Lymphatic: Reports: No Symptoms Immunologic: Reports: No Symptoms ED EXAM, GENERAL - Physical Exam Exam: See Below General Appearance: Alert, WD/WN, No Apparent Distress Respiratory/Chest: No Respiratory Distress, Lungs Clear, Normal Breath Sounds, No Accessory Muscle Use, Chest Non-Tender Cardiovascular: Normal Peripheral Pulses, Regular Rate, Rhythm, No Gallop, No JVD, No Murmur, No Rub, Other (1+ edema to left lower extremity below the knee. 2+ edema to right lower extremity below the knee.) Neurological: Alert, Oriented, CN II-XII Intact, Normal Cognition, Normal Gait, Normal Reflexes, No Motor/Sensory Deficits Psychiatric: Normal Affect, Normal Mood Skin Exam: Warm, Dry, Intact, Normal Color, No Rash Course - Vital Signs Last Recorded V/S: Last Vital Signs Temp 96.6 F L 04/06/21 10:48 Pulse 83 04/06/21 10:48 Resp 20 04/06/21 10:48 BP 124/81 04/06/21 10:48 Pulse Ox 92 L 04/06/21 10:48 - Orders/Labs/Meds Labs: Laboratory Tests 04/06/21 04/06/21 04/06/21 Range/Units 11:43 11:43 11:43 WBC 6.42 (3.98-10.04) K/mm3 RBC 4.71 (3.98-5.22) M/mm3 Hgb 13.7 (11.2-15.7) gm/dl Hct 43.1 (34.1-44.9) % MCV 91.5 (79.4-94.8) fl MCH 29.1 (25.6-32.2) pg MCHC 31.8 L (32.2-35.5) g/dl RDW Std Deviation 46.6 H (36.4-46.3) fL Plt Count 324 (182-369) K/mm3 MPV 9.3 L (9.4-12.3) fl Neut % (Auto) 55.6 (34.0-71.1) % Lymph % (Auto) 32.7 (19.3-51.7) % [place] % (Auto) 7.6 (4.7-12.5) % Eos % (Auto) 3.1 (0.7-5.8) Baso % (Auto) 0.8 (0.1-1.2) % Neut # (Auto) 3.57 (1.56-6.13) K/mm3 Lymph # (Auto) 2.10 (1.18-3.74) K/mm3 [place] # (Auto) 0.49 H (0.24-0.36) K/mm3 Eos # (Auto) 0.20 (0.04-0.36) K/mm3 Baso # (Auto) 0.05 (0.01-0.08) K/mm3 D-Dimer, Quantitative 0.50 (0.19-0.50) mg/L Sodium 144 (136-145) mEq/L Potassium 4.1 (3.5-5.1) mEq/L Chloride 108 H (98-107) mEq/L Carbon Dioxide 27 (21-32) mEq/L Anion Gap 13.1 (5-15) BUN 5 L (7-18) mg/dL Creatinine 0.7 (0.55-1.02) mg/dL Est Cr Clr Drug Dosing 77.01 mL/min Estimated GFR (MDRD) > 60 (>60) mL/min BUN/Creatinine Ratio 7.1 L (14-18) Glucose 81 (70-99) mg/dL Calcium 9.5 (8.5-10.1) mg/dL Total Bilirubin 0.5 (0.2-1.0) mg/dL AST 13 L (15-37) U/L ALT 26 (14-59) U/L Alkaline Phosphatase 108 (46-116) U/L C-Reactive Protein <0.2 (<1.0) mg/dL Total Protein 7.2 (6.4-8.2) g/dl Albumin 3.4 (3.4-5.0) g/dl Globulin 3.8 gm/dL Albumin/Globulin Ratio 0.9 L (1-2) - Re-Assessments/Exams Free Text/Narrative Re-Assessment/Exam: Patient is a 65-year-old female presenting to the emergency department with concerns of lower extremity swelling right worse than left. She reports that she has been on her feet a lot lately as she recently moved and is trying to unpack and arrange her apartment. States that she is occasionally short of breath, however this is baseline for her. She recently quit smoking. Reports swelling does improve with elevation. On exam, patient does have 2+ pitting edema to the right lower extremity below the knee as well as 1+ pitting edema to left lower extremity below knee. Lung sounds are diminished but clear. I suspect she has a dependent edema, however we will complete blood work with a D- dimer to rule out blood clot. Have also ordered a 2 chest x-ray. 04/06/21 12:23 Chest x-ray shows no acute abnormalities. Hematology is grossly unremarkable. D-dimer is normal. Discussed with patient that she is suffering from dependent edema. Recommend compression socks as well as rest and elevation. Follow-up in the clinic at next available visit. Return to ER as needed. Discharge instructions as documented. Departure - Departure Time of Disposition: 12:23 Disposition: Home, Self-Care 01 Condition: Good Clinical Impression: Peripheral edema - Discharge Information *PRESCRIPTION DRUG MONITORING PROGRAM REVIEWED*: No *COPY OF PRESCRIPTION DRUG MONITORING REPORT IN PATIENT BETHANY: No Instructions: Edema, [id number] Referrals: Kylah Isabel PT [Ordering Only Provider] - Forms: ED Department Discharge Additional Instructions: You were seen in the emergency department today for swelling to your lower extremities right being worse than the left. Work-up included chest x-ray, and blood work. Results of your work-up was found to be normal. There is no suggestion that you have a blood clot. Swelling is likely related to being on your feet for extended periods of time. Recommend compression stockings and rest with elevation as needed. Follow-up in the clinic with your primary care provider at the next available visit. Return to ER as needed. Sepsis Event Note (ED) - Evaluation Sepsis Screening Result: No Definite Risk - Focused Exam Vital Signs: Vital Signs Temp Pulse Resp BP Pulse Ox 04/06/21 10:48 96.6 F L 83 20 124/81 92 L
--- NOTE | 2021-04-06 12:13 | CR ---
Chest: 2 views of the chest were obtained. Comparison: Prior chest x-ray of 05/16/16. Heart size is normal. Upper mediastinum is within normal limits. Lungs are clear with no acute parenchymal change. Mild scoliosis is noted within the spine. Impression: 1. Nothing acute is seen on a 2 view chest x-ray. Diagnostic code #2
== END 2021-04-06 12:30 | disposition home or self-care (01) ==
LOC: SUPCPDRO 10:48 → JD.ED 10:48
DX: R60.0 Localized edema (principal); K21.9 Gastro-esophageal reflux disease without esophagitis; E03.9 Hypothyroidism, unspecified; Z87.891 Personal history of nicotine dependence; Z79.899 Other long term (current) drug therapy; Z88.5 Allergy status to narcotic agent; Z91.048 Other nonmedicinal substance allergy status
CPT/HCPCS: 36415; 71046; 71046-26; 80053; 85025; 85379; 86140; 99283; 99284-25

== ENCOUNTER 2022-03-12 00:21 | Emergency (ER) | payer MEDICAID, OTHER ==
[2022-03-12] MEDS ORDERED: Sodium Chloride 0.9% 10 ML Syringe FLUSH PRN ×2 (00:38→01:58)
[2022-03-12] MEDS ORDERED: Albuterol/Ipratropium 3.0-0.5 MG/3 ML Neb Soln NEB ONE (00:39)
[2022-03-12] MEDS ORDERED: Sodium Chloride 0.9% 1,000 ML IV SCH (00:45)
[2022-03-12 01:38] LABS: ESTIMATED GFR > 60 mL/min (>60)
[2022-03-12 01:58] VITALS: BP 110/97; PULSE 78
[2022-03-12] MEDS ORDERED: Iopamidol 755 Mg/ML 100 ML Bottle IVPUSH ONE (01:58)
[2022-03-12] MEDS ORDERED: Sodium Chloride 0.9% 100 ML IV SCH (02:00)
[2022-03-12] MEDS ORDERED: OLANZapine 5 MG Tab PO ONE (02:49)
[2022-03-12] MEDS ORDERED: Apixaban 5 MG Tab PO ONE (03:13)
== END 2022-03-12 04:04 | disposition home or self-care (01) ==
LOC: JD.ED 00:21
DX: T56.891A Toxic effect of other metals, accidental (unintentional), initial encounter (principal); I26.99 Other pulmonary embolism without acute cor pulmonale; E87.6 Hypokalemia; K21.9 Gastro-esophageal reflux disease without esophagitis; E03.9 Hypothyroidism, unspecified; Z86.16 Personal history of COVID-19; Z88.5 Allergy status to narcotic agent; Z88.8 Allergy status to other drugs, medicaments and biological substances; Z79.899 Other long term (current) drug therapy; Z79.01 Long term (current) use of anticoagulants; Z20.822 Contact with and (suspected) exposure to COVID-19
CPT/HCPCS: 36415; 71045; 71275; 80053; 80143; 80179; 81001; 83735; 83880; 84443; 84484; 85025; 85379; 86140; 87635; 93005; 94640; 96360; 96361; 99285; A9270; J3490; J7030; Q9967; 93010; 99284; J7620-GY; U0002

== ENCOUNTER 2022-03-12 14:44 | Emergency (ER) | payer OTHER ==
[2022-03-12] MEDS ORDERED: Potassium Chloride 10 MEQ in Premix Bag 1 BAG IV ONE (15:56)
[2022-03-12] MEDS ORDERED: Sodium Chloride 0.9% 1,000 ML IV SCH (16:00)
[2022-03-12] MEDS ORDERED: OLANZapine 5 MG Tab PO ONE (21:00)
[2022-03-12] MEDS ORDERED: LORazepam 1 MG Tab PO ONE (21:00)
[2022-03-12] MEDS: Apixaban 5 MG Tab PO SCH (21:15)
[2022-03-13] MEDS: Apixaban 5 MG Tab PO SCH (12:35)
[2022-03-13] MEDS ORDERED: Apixaban 5 MG Tab PO ONE ×2 (14:08→14:53)
[2022-03-13 15:03] VITALS: BP 115/80; PULSE 68
[2022-03-13 15:14] LABS: ESTIMATED GFR > 60 mL/min (>60)
== END 2022-03-13 15:36 ==
LOC: JD.ED 14:44
DX: T56.891A Toxic effect of other metals, accidental (unintentional), initial encounter (principal); I26.99 Other pulmonary embolism without acute cor pulmonale; R44.3 Hallucinations, unspecified; J44.9 Chronic obstructive pulmonary disease, unspecified; K21.9 Gastro-esophageal reflux disease without esophagitis; E03.9 Hypothyroidism, unspecified; Z88.8 Allergy status to other drugs, medicaments and biological substances; Z91.048 Other nonmedicinal substance allergy status; Z79.899 Other long term (current) drug therapy; Z79.01 Long term (current) use of anticoagulants; Z86.16 Personal history of COVID-19; Z87.891 Personal history of nicotine dependence
CPT/HCPCS: 36415; 80053; 80306; 80307; 85025; 96361; 96365; 99284; A9270; J3480; J7030

== ENCOUNTER 2023-04-14 11:00 | Day surgery (SDC) | payer OTHER ==
[~2023-04-14 11:00] MED LIST: Lactated Ringers 1,000 ML IV SCH; Sodium Chloride 0.9% 10 ML Syringe FLUSH PRN; Sodium Chloride 0.9% 10 ML Syringe FLUSH SCH
[2023-04-14] MEDS ORDERED: Lidocaine 1% 6 ML ONE (11:37)
[2023-04-14] MEDS ORDERED: fentaNYL 100 MCG/2 ML SDV ONE (11:37)
[2023-04-14] MEDS ORDERED: Propofol 200 MG/20 ML SDV ONE ×3 (11:37→12:53)
[2023-04-14] MEDS ORDERED: Lactated Ringers 1,000 ML ONE (12:56)
[2023-04-14 14:16] VITALS: BP 132/84; PULSE 78
== END 2023-04-14 14:22 | disposition home or self-care (01) ==
LOC: JD.SDS 11:00
PROVIDERS: ATTEND Surgery
DX: D12.2 Benign neoplasm of ascending colon (principal); D12.4 Benign neoplasm of descending colon; D12.5 Benign neoplasm of sigmoid colon; D12.3 Benign neoplasm of transverse colon; K21.9 Gastro-esophageal reflux disease without esophagitis; K57.30 Diverticulosis of large intestine without perforation or abscess without bleeding; K64.9 Unspecified hemorrhoids; F31.9 Bipolar disorder, unspecified; E55.9 Vitamin D deficiency, unspecified; F41.1 Generalized anxiety disorder; J44.9 Chronic obstructive pulmonary disease, unspecified; E03.9 Hypothyroidism, unspecified; M19.90 Unspecified osteoarthritis, unspecified site; Z98.890 Other specified postprocedural states; Z79.01 Long term (current) use of anticoagulants; Z79.899 Other long term (current) drug therapy; Z79.890 Hormone replacement therapy; Z88.8 Allergy status to other drugs, medicaments and biological substances; Z87.891 Personal history of nicotine dependence; Z86.16 Personal history of COVID-19
CPT/HCPCS: 43239; 45380; 45381; J2704; J3010; J7120; J3490

== ENCOUNTER 2024-04-18 07:28 | Day surgery (SDC) | payer OTHER ==
[~2024-04-18 07:28] MED LIST changes: -Lactated Ringers 1,000 ML IV SCH
[2024-04-18] MEDS: Lactated Ringers 1,000 ML IV SCH (07:55)
[2024-04-18] MEDS ORDERED: Propofol 200 MG/20 ML SDV ONE (08:23)
[2024-04-18] MEDS ORDERED: Lidocaine 2% 5 ML SDV ONE (08:24)
[2024-04-18 10:12] VITALS: BP 118/87; PULSE 86
== END 2024-04-18 10:03 | disposition home or self-care (01) ==
LOC: JD.SDS 07:28
PROVIDERS: ATTEND Surgery
DX: Z12.11 Encounter for screening for malignant neoplasm of colon (principal); D12.0 Benign neoplasm of cecum; K62.1 Rectal polyp; K21.9 Gastro-esophageal reflux disease without esophagitis; E78.00 Pure hypercholesterolemia, unspecified; J44.9 Chronic obstructive pulmonary disease, unspecified; F31.9 Bipolar disorder, unspecified; E03.9 Hypothyroidism, unspecified; F17.210 Nicotine dependence, cigarettes, uncomplicated; Z79.890 Hormone replacement therapy; Z79.899 Other long term (current) drug therapy
CPT/HCPCS: 45380; 45381; J2704; J7120; J3490

== ENCOUNTER 2025-05-11 15:16 | Emergency (ER) | payer OTHER ==
[2025-05-11 15:31] VITALS: BP 114/83; PULSE 93
== END 2025-05-11 15:55 | disposition home or self-care (01) ==
LOC: JD.ED 15:16
DX: K04.7 Periapical abscess without sinus (principal); E78.00 Pure hypercholesterolemia, unspecified; J44.9 Chronic obstructive pulmonary disease, unspecified; K21.9 Gastro-esophageal reflux disease without esophagitis; E03.9 Hypothyroidism, unspecified; Z86.16 Personal history of COVID-19; Z91.018 Allergy to other foods; Z88.8 Allergy status to other drugs, medicaments and biological substances; Z79.899 Other long term (current) drug therapy; Z79.01 Long term (current) use of anticoagulants; Z79.890 Hormone replacement therapy; Z87.891 Personal history of nicotine dependence
CPT/HCPCS: 99283